=== PATIENT | female | born 2000 | race African-American/Black ===

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

== ENCOUNTER 2022-05-16 09:46 | Emergency (ER) | payer MEDICAID, SELFPAY ==
[2022-05-16 09:47] VITALS: BP 114/81; RESP 18; TEMP 36.6; O2SAT 99; BMI 22.8
[2022-05-16 09:51] VITALS: PULSE 92
[2022-05-16 10:02] VITALS: BP 114/81; PULSE 92; RESP 18; TEMP 36.6; O2SAT 99
--- NOTE | 2022-05-16 10:25 | RAD_ITS ---
STUDY: X-RAY CHEST REASON FOR EXAM: Female, 22 years old. Cough TECHNIQUE: PA and lateral views of the chest. COMPARISON: None. FINDINGS: The lungs are clear and expanded. There is no demonstrated pleural abnormality. Normal size heart. Normal mediastinum and ailyn. Normal visualized pulmonary arteries. Normal visualized aortic arch and descending thoracic aorta. Normal visualized thoracic spine. Normal visualized ribs, clavicles, and shoulders. There is no demonstrated abnormality of the visualized soft tissue structures of the upper abdomen. RAD/Chest PA and Lateral IMPRESSION: Normal x-ray examination of the chest. Electronically Signed: Joslyn Cabrera MD at 11:09 EST Reading Location ID and State: [facility] / [place] Tel , Service support ,
--- NOTE | 2022-05-16 10:26 | EDS_ITS ---
HPI History of Present Illness Chief Complaint: Chest Pain Informant: patient Narrative Narrative: Sore throat 3 days ago increasing cough productive sputum. Talk to telehealth yesterday she had a COVID and flu swab for 10 AM this morning. However developed a fever 101 forehead status post ibuprofen. Her whole family has influenza. Denies myalgias. She had vaccinated for influenza this year. She had COVID 2 years ago. History of asthma however denies any wheezing.Chest pain with cough. PFSH PFSH Home Medications Lisdexamfetamine Dimesylate [Vyvanse] 60 mg PO DAILY 11/21/13 [History Last Taken Unknown] ergocalciferol (vitamin D2) 10 mcg (400 unit) tablet 400 unit PO DAILY 11/21/13 [History Last Taken Unknown] montelukast 5 mg chewable tablet (Singulair) 5 mg PO BID 11/21/13 [History Last Taken Unknown] omeprazole 10 mg capsule,delayed release 10 mg PO DAILY 11/21/13 [History Last Taken Unknown] ibuprofen 600 mg tablet 600 mg PO TID PRN PRN Pain #20 tabs 05/12/18 [Rx Last Taken Unknown] norgestimate 0.18 mg/0.215 mg/0.25 mg-ethinyl estradiol 25 mcg tablet 1 tab PO DAILY 12/26/18 [History Last Taken Unknown] prednisone 20 mg tablet 60 mg PO DAILY #15 tabs 05/16/22 [Rx Last Taken Unknown] Allergy/AdvReac Type Severity Reaction Status Date / Time amoxicillin [Amoxicillin] Allergy Hives Verified 12/26/18 20:18 Social History Smoking Status: Never smoker ROS ROS ED Constitutional Constitutional ED: Reports fever(s); Denies chills or sweats Eyes Eyes: Denies change in vision ENT ENT ED: Reports sore throat; Denies dysphagia Cardiovascular Cardiovascular: Reports chest pain; Denies leg edema, palpitations or racing heartbeat Respiratory/Chest Respiratory/Chest: Reports cough and dyspnea; Denies dyspnea on exertion Gastrointestinal Gastrointestinal: Denies abdominal pain, diarrhea, nausea or vomiting Genitourinary Genitourinary ED: Denies dysuria, hematuria or urinary frequency Musculoskeletal Musculoskeletal: Denies back pain, extremity pain or neck pain Integumentary Denies rash or wounds Neurologic Neurologic: Denies headache(s), paresthesias or weakness EXAM Physical Exam Const Vital Signs: 05/16/22 09:47 05/16/22 09:51 05/16/22 10:02 Temperature 97.8 F 97.8 F Temperature Source Temporal Temporal Pulse Rate 92 92 Respiratory Rate 18 18 Blood Pressure 114/81 H 114/81 H Blood Pressure Mean 92 92 Pulse Ox 99 99 Oxygen Delivery Method Room Air Room Air 05/16/22 11:54 Temperature Temperature Source Pulse Rate 100 Respiratory Rate 18 Blood Pressure 101/9 L Blood Pressure Mean Pulse Ox 96 Oxygen Delivery Method Positive well nourished and well developed General Appearance ED: well developed and NAD HEENT Reports TM's clear and moist mucous membranes HEENT Narrative: No posterior pharyngeal erythema. normocephalic and atraumatic Tympanic Membrane ED: Yes TM's clear Eyes PERRL, EOMs intact bilaterally and conjunctivae normal General Eye ED: Yes normal appearance of both eyes Neck no lymphadenopathy and supple General: Negative for tenderness Chest Wall Chest: Negative for tenderness Resp normal respiratory effort and normal air movement Effort and Inspection: symmetric chest movement; Negative for respiratory distress Cardio regular rate, regular rhythm and no murmurs Peripheral Pulses: pulses 2+ throughout GI normal to inspection, nondistended, normoactive bowel sounds and non-tender Palpation: Negative for guarding or rebound tenderness present Back/Spine no CVA tenderness and no thoracic nor lumbar tenderness Extremity normal to inspection General Extremety ED: Negative for edema or tenderness General Extremity: Negative for edema Neuro oriented x3 and no sensory deficits noted Sensorium / Orientation: awake and alert Skin no rashes or lesions noted and no wounds MDM MDM MDM Narrative Medical decision making narrative: Patient vital signs stable. Rapid influenza and COVID-negative two-view chest x-ray reviewed by myself and read by radiology as negative. I discussed viral syndrome with the patient. Also discussed possibility of false negative rapid testing. Discussed continuing symptomatic treatment. She is more reassured. Return precautions. All questions were answered. Radiography Diagnostic Testing: Clinical Impression(s) from Imaging Studies Chest X-Ray 05/16/22 10:25 IMPRESSION: Normal x-ray examination of the chest. Electronically Signed: Joslyn Cabrera MD at 11:09 EST Reading Location ID and State: [facility] / [place] Tel , Service support , Discharge Plan Triage Chief Complaint: Chest Pain ED Provider: Steven Love Dx/Rx/DC Orders Clinical Impression: Viral syndrome, Asthma Instructions: ED URI, Viral, No Abx (Adult), Asthma Prescriptions: New prednisone 20 mg tablet 60 mg PO DAILY Qty: 15 0RF No Action montelukast [Singulair] 5 MG tablet,chewable 5 mg PO BID ergocalciferol (vitamin D2) 400 UNIT tablet 400 unit PO DAILY omeprazole 10 MG capsule 10 mg PO DAILY Lisdexamfetamine Dimesylate [Vyvanse] 50 MG capsule 60 mg PO DAILY Label Comments: ibuprofen 600 MG tablet 600 mg PO TID PRN PRN (Reason: Pain) Qty: 20 0RF norgestimate-ethinyl estradiol 1 EACH tablet 1 tab PO DAILY Label Comments: Take 1 tablet by mouth once daily. Primary Care Provider: Chapito Tolentino Referrals: Jeremiah Carrasco MD [Non-Staff] - Activity Restrictions/Additional Instructions: COVID and influenza negative. Chest x-ray negative. Monitor symptoms. Start prednisone if you start wheezing. Return if any worsening symptoms. Disposition Disposition: Home, Self Care Discharge Date/Time: 05/16/22 11:55
[2022-05-16 11:54] VITALS: BP 101/9; PULSE 100; RESP 18; O2SAT 96
== END 2022-05-16 11:55 | disposition home or self-care (01) ==
PROVIDERS: Emergency Provider Emergency Medicine; PCP Student in an Organized Health Care Education/Training Program; Visit Provider Emergency Medicine
DX: B34.9 Viral infection, unspecified (principal); J45.909 Unspecified asthma, uncomplicated; Z86.16 Personal history of COVID-19
CPT/HCPCS: 71046; 87428; 99284

== ENCOUNTER 2023-02-12 10:00 | Outpatient (RCR) | payer OTHER, SELFPAY ==
--- NOTE | 2023-01-13 14:51 | HP.PTEVAL ---
Patient's Visit Information Visit Information Visit Information: MACKENZIE CHASE is a 23 year old F referred to Physical Therapy by DUANE GRAVES with a diagnosis of Left Knee Surgery 12/15/22. 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 Shamir Griffith at [facility]- but patient is unsure of what she had done. She reports that she is behind in PT but is unsure of where she is suppose to be. She goes back to the MD beginning of January. Patient reports that the pain level in the knee is getting better. Worst: 5/10 Agg: standing on it Eases: ice Best: 0/10. Pain is located along the whole knee pain- pain does not radiate- does have some N/T in her toes if its elevated too long. Describes the pain as locking and stiff and hurting. She is unsure how much she is allowed to put on her leg- she is putting 50% due to pain. No brace- only an gurmeet bandage- is wearing it at night. She takes a w/c when she goes around [facility]. 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 PMHx: none Meds: vivance Objective Objective: Posture: FH, RS- can correct but does not maintain Observation: no brace or gurmeet wrap- incisions healing well- no s/s infection Gait: pt is using axillary crutches- partial weight bearing- while walking through clinic- hopping in evaluation room on the right LE to get from chair to plinth. Palpation: tender along medial and lateral joint line ROM: 0-145 degrees Strength: Ankle: 5/5, Knee: Left Extn: 43/43 Flexion: 24/26 Right Extn: 61/62 Flexion: 43/39 Girth: Patella: 35 cm 6 above: 45.5 Standing Measurements Taken once guidance from MD as to surgical intervention and precautions Balance/Special Test Scores Lower Extremity Functional Score: 15 Goals Goal 1:: Patient will be I with HEP and progression Goal Time Frame: 4-6 Weeks Goal 2:: Patient will demo equal girth 6 above patella Goal Time Frame: 4-6 Weeks Goal 3:: Patient will ambulate >300 feet with normalized gait pattern Goal Time Frame: 4-6 Weeks Goal 4:: Patient will squat with good mechanices Goal Time Frame: 4-6 Weeks Goal 5:: Patient will report 80% improvement Goal Time Frame: 4-6 Weeks Rehabilitation Potential Physical Therapy Diagnosis: Patient presents s/p left knee surgery- she has decreased LE strength/stabilization and muscular endurance leading to abnormal gait pattern and inability to perform ADL's Anticipated Interventions Patient/Client Instruction: Educate patient on: Benefits of Fitness Program Therapeutic Exercise to Include: Strength training, Endurance training, Balance training, Coordination, Body mechanics, Postural training, Flexibilty training, Gait and locomotor training, Neuromotor development, Passive ROM, Active ROM, Dynamic Lumbar Stabilization and Scapular Strength/Stabilization TENS: Yes Cryotherapy (ice pack, ice massage): Yes Thermo therapy (hot pack): Yes Vasopneumatic device: Yes Text: Thank you for the opportunity to evaluate your patient. For Medicare and Medicare HMO plans, please review the plan of care and approve it. It will need to be FAXED BACK to us at [phone] for Medicare purposes. For Medicare only, by signing this I certify the plan of care. Please let me know if there are questions or concerns regarding this plan of care. Physician Signature: Date:
--- NOTE | 2023-02-12 10:34 | HP.PTREVAL ---
Re-Evaluation Intro: DUANE TELLRICH, It has been my pleasure to treat MACKENZIE CHASE over the last 9 visits for Left Knee Surgery 12/15/22. Please see the progress note below for an update on the physical therapy plan of care! Subjective Subjective: Patient reports that the knee is doing good. She is able to do more stuff- she is doing her exercise at home. 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 At work she is always moving around so she is unsure if she can be up and moving for that long of a time. She has no pain in the knee. She feels 80% back to normal. Getting all the way down to the floor and back up doesn't feel all the way normal Objective Objective/Function: Strength: Extn: Left: 59 Right: 53 Flexion: Left: 29 Right: 33 Girth 6 above:Left: 45.5 cm Right: 46 cm ROM:0-145 Gait: no deviation noted Stairs: asc/desc 8 recip no HR Plan Plan Plan: 02/12/23: Continue 2 x a week for strength and progress to higher level running and activities ROM and Strengthening- no impact x4 weeks from surgery (12/15/22)- WBAT Procedure: Lateral Meniscectomy per Surgical Report Balance/Gait/Functional tests Balance/Special Test Scores Lower Extremity Functional Score: 57 Goals Goals Goal 1:: Patient will be I with HEP and progression Goal Time Frame: 4-6 Weeks Goal Progress: Progressing Goal 2:: Patient will demo equal girth 6 above patella Goal Time Frame: 4-6 Weeks Goal Progress: Progressing Goal 3:: Patient will ambulate >300 feet with normalized gait pattern Goal Time Frame: 4-6 Weeks Goal Progress: Progressing Goal 4:: Patient will squat with good mechanices Goal Time Frame: 4-6 Weeks Goal Progress: Progressing Goal 5:: Patient will report 80% improvement Goal Time Frame: 4-6 Weeks Goal Progress: Progressing Anticipated Interventions Anticipated Interventions Patient/Client Instruction: Educate patient on: Benefits of Fitness Program Therapeutic Exercise to Include: Strength training, Endurance training, Balance training, Coordination, Body mechanics, Postural training, Flexibilty training, Gait and locomotor training, Neuromotor development, Passive ROM, Active ROM, Dynamic Lumbar Stabilization and Scapular Strength/Stabilization TENS: Yes Cryotherapy (ice pack, ice massage): Yes Thermo therapy (hot pack): Yes Vasopneumatic device: Yes Re-Evaluation Ending Re-evaluation ending: Please do not hesitate to contact me at [phone] by phone or if you have questions or concerns regarding this new plan of care! Sincerely, THOMAS OvallesT
--- NOTE | 2023-04-19 10:26 | HP.PT.NRP ---
Patient Information Patient Information: MACKENZIE CHASE was seen in my office for initial evaluation on 01/13/23. The following Plan of Care was established for this patient: POC Established Initial Frequency: 2x /Week Initial Duration: 4 Weeks Anticipated Interventions Patient/Client Instruction: Educate patient on: Benefits of Fitness Program Therapeutic Exercise to Include: Strength training, Endurance training, Balance training, Coordination, Body mechanics, Postural training, Flexibilty training, Gait and locomotor training, Neuromotor development, Passive ROM, Active ROM, Dynamic Lumbar Stabilization and Scapular Strength/Stabilization TENS: Yes Cryotherapy (ice pack, ice massage): Yes Thermo therapy (hot pack): Yes Vasopneumatic device: Yes Last Seen Last Seen: This patient was last seen in our office . Pertinent comments regarding their Physical therapy will appear below: Patient reports that she is not interested in PT at this time- appropriate for d/c. At this point I will be discontinuing this patient from physical therapy. I would be happy to see this patient again in the future if found appropriate by the physician. Thank you! Carrie Schwab DPT Balance/Gait/Functional tests Balance/Special Test Scores Lower Extremity Functional Score: 57
== END 2023-02-12 19:00 | disposition home or self-care (01) ==
LOC: PT 10:00
PROVIDERS: PCP Student in an Organized Health Care Education/Training Program
DX: S83.282D Other tear of lateral meniscus, current injury, left knee, subsequent encounter (principal); M23.007 Cystic meniscus, unspecified meniscus, left knee
CPT/HCPCS: 97110; 97162; 97164